=== PATIENT | female | born 1960 | race Caucasian/White ===

== ENCOUNTER 2016-11-13 14:45 | Emergency (ER) | payer OTHER ==
[~2016-11-13] VITALS: Ht 170.2 cm; Wt 62.7 kg
[2016-11-13] MEDS ORDERED: PANT40TA2 PO (15:24)
[2016-11-13] MEDS ORDERED: MONT10TA2 PO (15:24)
[2016-11-13] MEDS ORDERED: IBUP-1022 PO (15:24)
[2016-11-13] MEDS ORDERED: SERO1TAB3 PO (15:24)
[2016-11-13] MEDS ORDERED: VENL37.598 PO (15:24)
--- NOTE | 2016-11-13 16:43 | REP ---
Right 5th toe series: Four views: History: Trauma. Findings: Four views of the right 5th toe demonstrate a nondisplaced fracture of the proximal phalanx with associated soft-tissue swelling. The DIP joint is developmentally fused. Impression: 5th proximal phalangeal fracture nondisplaced. Signed by Regan Seay MD 11/13/2016 05:12 P
[2016-11-13 17:27] VITALS: BP 132/78
== END 2016-11-13 17:32 | disposition home or self-care (01) ==
LOC: M ED 14:45
DX: S92.514A Nondisplaced fracture of proximal phalanx of right lesser toe(s), initial encounter for closed fracture (principal); W22.09XA Striking against other stationary object, initial encounter; Y92.009 Unspecified place in unspecified non-institutional (private) residence as the place of occurrence of the external cause; Y93.01 Activity, walking, marching and hiking; Y99.8 Other external cause status; F32.9 Major depressive disorder, single episode, unspecified; Z88.8 Allergy status to other drugs, medicaments and biological substances; Z79.899 Other long term (current) drug therapy